=== PATIENT | male | born 1990 | race Caucasian/White ===

== ENCOUNTER 2016-11-16 16:21 | Emergency (ER) | payer OTHER ==
[2016-11-16 17:13] LABS: % IMMATURE GRANULYOCYTES 0.3 % (0.0-1.1); ABSOLUTE IMMATURE GRANULOCYTES 0.02 10^3/uL (0.00-0.10); ADD DIFF? NO; ADD MORPH? NO; ADD SCAN? NO; ATYPICAL LYMPHOCYTE FLAG 10 (0-99); FRAGMENT RBC FLAG 30 (0-99); LEFT SHIFT FLG 0 (0-99); LIPEMIA HEMOLYSIS FLAG 90 (0-99); MEAN CELL HEMOGLOBIN 30.8 pg (27.9-34.1); MEAN CELL HEMOGLOBIN CONCENTR. 35.8 g/dL (32.4-36.7); MEAN CELL VOLUME 85.9 fL (81.5-99.8); MEAN PLATELET VOLUME 10.9 fL (8.7-11.7); PLATELET CLUMPS FLAG 10 (0-99); PLATELET COUNT 297 10^3/uL (150-400); RED BLOOD CELL COUNT 6.17 10^6/uL (4.40-6.38); RED CELL DISTRIBUTION WIDTH 12.3 % (11.5-15.2)
--- NOTE | 2016-11-16 17:18 | EDPHY ---
H & P Stated Complaint: manic Source: Police, EMS - Personal History Current Tetanus/Diphtheria Vaccine: Unsure Current Tetanus Diphtheria and Acellular Pertussis (TDAP): Unsure - Social History Smoking Status: Never smoked Alcohol Use: Other (Unable to obtain information) Drug Use: Marijuana, Other Time Seen by Provider: 11/16/16 16:24 HPI/ROS: This is a 26 year male brought into the emergency department via EMS and police. Patient placed in handcuffs prior to arrival due to agitation and throwing items. Patient placed on M1 hold by please, report given patient was throwing things in his house broke a window there was glass all over the floor, pacing back and forth with thoughts of hurting himself, EMS states patient was in a manic phase. ED arrival, patient anxious, no structure sentences, reports "wanting to go home, too much jeopardy here in the room, all he needs is the pendulum report". REVIEW OF SYSTEMS: Unable to obtain due to patient's altered mental status and agitation (Gail Rivera) - Medical/Surgical History PMH: Unknown, unable to obtain due to altered mental status and agitation (Gail Rivera) - Physical Exam Exam: CONSTITUTIONAL: patient appeared well nourished, non-ill appearing Vital signs as documented. HEENT: Normocephalic atraumatic NECK: Full range of motion RESP: Non-labored resp effort NEURO: Awake alert oriented to person EXTREMITIES: Bruising noted to right bicep with abrasions FROM without pain or difficulty. PSYCH: Restless, flat affect, jumbled sentences, manic 1826: Patient agitated, escalating behavior, attempting to leave. Verbally threatening staff and security. Haldol ordered (Gail Rivera) Constitutional: Initial Vital Signs Temperature (C) 36.9 C 11/16/16 16:30 Heart Rate 120 H 11/16/16 16:30 Respiratory Rate 18 11/16/16 16:30 Blood Pressure 152/100 H 11/16/16 16:30 O2 Sat (%) 95 11/16/16 16:30 O2 Delivery Mode Room Air Allergies/Adverse Reactions: No Known Allergies Allergy (Unverified 11/16/16 18:51) Home Medications: Medication Instructions Recorded NK [No Known Home Meds] 11/16/16 Medical Decision Making ED Course/Re-evaluation: 2044: Pt calm, sleeping restraints removed 2049: Patient medically cleared for psych evaluation. Patient signed over to ever Garcia (Gail Rivera) Pt seen and examined by ks. Patient is acutely manic. His behavior escalated. He required Haldol 10 mg IM and Ativan 2 mg IM to control his behavior. (Hemalatha Yun) Patient remained stable during my care. He was awaiting mental health evaluation (Joseph Dominguez) Other Provider: Patient's care transferred to ks at 3:00 p.m.. The patient i has been here for 22 hours for a manic episode, throwing things, breaking glass and suicidal statements. He did recently require Zyprexa. He is on an M1 hold. He has been evaluated and we are awaiting psychiatric placement. He has been medically cleared prior to my arrival. 4:30 p.m. the patient has been accepted by Dr. Go at [facility]. They are requesting Ativan and TSH level. Transfer paperwork completed. (Jarvis Genao ) Care Turn Over: Care to Dr. Carroll at 2300 (Joseph Dominguez) - Data Points Laboratory Results: Laboratory Results 11/16/16 16:40 11/16/16 16:40 Medications Given: Discontinued Medications Haloperidol Lactate (Haldol Injection) 10 mg IM EDNOW ONE Stop: 11/16/16 18:27 Last Admin: 11/16/16 18:28 Dose: 10 mg Lorazepam (Ativan Injection) 2 mg IM EDNOW ONE Stop: 11/16/16 19:14 Last Admin: 11/16/16 19:17 Dose: 2 mg Lorazepam (Ativan) 2 mg PO EDNOW ONE Stop: 11/17/16 16:34 Last Admin: 11/17/16 16:43 Dose: 2 mg Olanzapine (Zyprexa Zydis) 5 mg PO EDNOW ONE Stop: 11/17/16 14:05 Last Admin: 11/17/16 16:42 Dose: Not Given Olanzapine (Olanzapine) 10 mg PO ONCE ONE Stop: 11/17/16 19:38 Last Admin: 11/17/16 19:41 Dose: 10 mg Departure - Departure Disposition: Acute Care Hospital Not [facility] Clinical Impression: Bipolar I disorder with kevan Condition: Fair Referrals: Patient,NotPresent [Unknown] - As per Instructions
[2016-11-16 17:24] LABS: ANION GAP 14 mEq/L (8-16); CALCIUM 9.5 mg/dL (8.5-10.4); CARBON DIOXIDE 21 mEq/l (22-31); CHLORIDE 105 mEq/L (97-110); CREATININE 0.9 mg/dL (0.7-1.3); ETHANOL SERUM < 10 mg/dL (0-10); GLOMERULAR FILTRATION RATE > 60; GLUCOSE 144 mg/dL (70-100); POTASSIUM 4.1 mEq/L (3.5-5.2); SODIUM 140 mEq/L (134-144)
[2016-11-16] MEDS ORDERED: HALOPERIDOL LACT 5 MG/ML INJ ONE ×2 (18:25)
[2016-11-16] MEDS ORDERED: HALOPERIDOL LACT 5 MG/ML INJ IM ONE (18:26)
[2016-11-16] MEDS ORDERED: LORazepam 2 MG/ML INJ ONE (19:07)
[2016-11-16] MEDS ORDERED: LORazepam 2 MG/ML INJ IM ONE (19:13)
[2016-11-17 08:12] VITALS: RESP 16
[2016-11-17] MEDS ORDERED: OLANZapine DISINTEGR 5 MG TAB PO ONE (14:04)
[2016-11-17] MEDS ORDERED: LORazepam 1 MG TAB PO ONE (16:33)
[2016-11-17] MEDS ORDERED: OLANZapine 10 MG TAB PO ONE (19:37)
[2016-11-17] MEDS ORDERED: OLANZapine DISINTEGR 10 MG TAB ONE (19:39)
[2016-11-17 20:04] VITALS: BP 114/74; PULSE 84; TEMP 98.2; O2SAT 96
== END 2016-11-17 20:03 | disposition short-term general hospital (02) ==
DX: F31.9 Bipolar disorder, unspecified (principal)
CPT/HCPCS: 80305; G0480; J2060